=== PATIENT | male | born 1950 | race African-American/Black ===

== ENCOUNTER 2017-02-04 21:00 | Emergency (ER) | payer MEDICARE, MEDICAID ==
[~2017-02-04] VITALS: Ht 165.1 cm; Wt 87.0 kg
[2017-02-04] MEDS ORDERED: ASPI-1159 PO (21:51)
[2017-02-04] MEDS ORDERED: ATOR20TA PO (21:51)
[2017-02-04] MEDS ORDERED: METF500T PO (21:51)
[2017-02-04 23:48] LABS: BASOPHILS % 0.6 % (0.0-2.0); EOSINOPHILS % 1.3 % (0.0-5.0); HEMATOCRIT. 41.9 % (42.0-52.0); HEMOGLOBIN. 13.7 g/dL (14.0-18.0); LYMPHOCYTES % 20.9 % (20.0-50.0); MEAN CORPUSCULAR HEMOGLOBIN 23.1 pg (28.0-32.0); MEAN CORPUSCULAR VOLUME 70.7 fL (80.0-94.0); MEAN PLATELET VOLUME 8.5 fl (7.4-10.4); MONOCYTES % 11.8 % (2.0-8.0); NEUTROPHILS % 65.4 % (40.0-76.0); PLATELET 230 x1000/uL (130-400); RED BLOOD CELL COUNT 5.93 mill/uL (4.7-6.1); RED CELL DISTRIBUTION WIDTH 15.2 % (11.6-14.6)
[2017-02-05 00:02] LABS: CARBON DIOXIDE 26 mEq/L (21-32); CHLORIDE 104 mEq/L (98-107); TROPONIN I < 0.02 ng/mL (0.00-0.04)
[2017-02-05 00:13] VITALS: BP 129/81
== END 2017-02-05 00:18 | disposition home or self-care (01) ==
LOC: ER 21:00
DX: E16.2 Hypoglycemia, unspecified (principal); E78.00 Pure hypercholesterolemia, unspecified; E11.65 Type 2 diabetes mellitus with hyperglycemia; Z79.82 Long term (current) use of aspirin
CPT/HCPCS: 36415; 80048; 82962; 84484; 85025; 93005; 99285

== ENCOUNTER 2023-08-20 12:17 | Emergency (ER) | payer MEDICARE, MEDICAID ==
[~2023-08-20] VITALS: Ht 165.1 cm; Wt 79.5 kg
[~2023-08-20 12:17] MED LIST: ASPI-1497 PO; ATOR20TA PO; METF500T PO
[2023-08-20 12:32] VITALS: BP 125/60; PULSE 62; TEMP 98.6; O2SAT 100
[2023-08-20 15:09] LABS: BASOPHILS % 0.5 % (0.0-2.0); EOSINOPHILS % 0.6 % (0.0-5.0); HEMATOCRIT. 35.8 % (42.0-52.0); HEMOGLOBIN. 11.7 g/dL (14.0-18.0); LYMPHOCYTES % 21.7 % (20.0-50.0); MEAN CORPUSCULAR HEMOGLOBIN 21.4 pg (28.0-32.0); MEAN CORPUSCULAR HGB CONC 32.8 g/dL (31.0-37.0); MEAN CORPUSCULAR VOLUME 65.2 fL (80.0-94.0); MEAN PLATELET VOLUME 8.6 fl (7.4-10.4); MONOCYTES % 11.8 % (2.0-8.0); NEUTROPHILS % 65.4 % (40.0-76.0); PLATELET 320 x1000/uL (130-400); RED BLOOD CELL COUNT 5.49 mill/uL (4.7-6.1); RED CELL DISTRIBUTION WIDTH 16.2 % (11.6-14.6); WHITE BLOOD COUNT 11.7 x1000/uL (4.5-11.0)
[2023-08-20 15:16] LABS: ADD RBC MORPHOLOGY YES; DIFFERENTIAL COMMENT 1
[2023-08-20 15:18] LABS: CHLORIDE 102 mEq/L (98-107); POTASSIUM 4.1 mEq/L (3.5-5.1); SODIUM 137 mEq/L (136-145)
[2023-08-20 15:19] LABS: CARBON DIOXIDE 29 mEq/L (21-32)
[2023-08-20 15:25] LABS: GLUCOSE 100 mg/dL (70-105); UREA NITROGEN BLOOD 18 mg/dL (9-23)
[2023-08-20] MEDS ORDERED: IBUP-2030 MT (15:45)
[2023-08-20] MEDS ORDERED: METF-873 MT (15:45)
[2023-08-20 15:46] LABS: HYPOCHROMASIA 2+; MICROCYTOSIS 3+
[2023-08-20 15:48] LABS: PLATELET ESTIMATE NORMAL
== END 2023-08-20 16:10 | disposition home or self-care (01) ==
LOC: ER 12:17
DX: M54.16 Radiculopathy, lumbar region (principal); R07.89 Other chest pain; E11.9 Type 2 diabetes mellitus without complications; Z79.82 Long term (current) use of aspirin; Z98.890 Other specified postprocedural states
CPT/HCPCS: 36415; 71045; 72100; 80048; 85025; 93971; 99284

== ENCOUNTER 2024-02-12 18:42 | Emergency (ER) | payer MEDICARE, MEDICAID ==
[~2024-02-12] VITALS: Ht 165.1 cm; Wt 77.6 kg
[~2024-02-12 18:42] MED LIST changes: +IBUP-2030 MT; +METF-873 MT
[2024-02-12 18:44] VITALS: O2SAT 99
[2024-02-12 18:48] VITALS: BP 120/54; PULSE 66; RESP 18; TEMP 98.2; O2SAT 98
[2024-02-12 20:25] LABS: BASOPHILS % 0.4 % (0.0-2.0); EOSINOPHILS % 1.5 % (0.0-5.0); HEMOGLOBIN. 10.1 g/dL (14.0-18.0); LYMPHOCYTES % 32.1 % (20.0-50.0); MEAN CORPUSCULAR HEMOGLOBIN 20.8 pg (28.0-32.0); MEAN CORPUSCULAR HGB CONC 31.6 g/dL (31.0-37.0); MEAN CORPUSCULAR VOLUME 65.8 fL (80.0-94.0); MEAN PLATELET VOLUME 8.6 fl (7.4-10.4); MONOCYTES % 7.2 % (2.0-8.0); NEUTROPHILS % 58.8 % (40.0-76.0); PLATELET 298 x1000/uL (130-400); RED BLOOD CELL COUNT 4.87 mill/uL (4.7-6.1); RED CELL DISTRIBUTION WIDTH 18.5 % (11.6-14.6); WHITE BLOOD COUNT 7.7 x1000/uL (4.5-11.0)
[2024-02-12 20:29] LABS: CHLORIDE 107 mEq/L (98-107); POTASSIUM 3.9 mEq/L (3.5-5.1); SODIUM 141 mEq/L (136-145)
[2024-02-12 20:30] LABS: CARBON DIOXIDE 28 mEq/L (21-32)
[2024-02-12 20:31] LABS: CALCIUM 9.2 mg/dL (8.7-10.4)
[2024-02-12 20:32] LABS: ADD RBC MORPHOLOGY YES; DIFFERENTIAL COMMENT 1
[2024-02-12 20:36] LABS: GLUCOSE 125 mg/dL (70-105); UREA NITROGEN BLOOD 21 mg/dL (9-23)
[2024-02-12] MEDS ORDERED: DOCU-138 MT (20:48)
[2024-02-12] MEDS ORDERED: IRON15TA3 MT (20:48)
[2024-02-12 21:20] LABS: HYPOCHROMASIA 2+; MICROCYTOSIS 3+; OVALOCYTES 1+; PLATELET ESTIMATE NORMAL
[2024-02-12 21:21] LABS: ANISOCYTOSIS 1+
== END 2024-02-12 20:58 | disposition home or self-care (01) ==
LOC: ER 18:42
DX: D64.9 Anemia, unspecified (principal); E11.36 Type 2 diabetes mellitus with diabetic cataract; E78.00 Pure hypercholesterolemia, unspecified; Z98.890 Other specified postprocedural states; Z79.899 Other long term (current) drug therapy; Z88.8 Allergy status to other drugs, medicaments and biological substances
CPT/HCPCS: 36415; 80048; 85025; 86850; 86900; 99283